=== PATIENT | male | born 1970 | race Caucasian/White ===

== ENCOUNTER → 2025-01-26 | Outpatient (CLI) | payer OTHER | LOC: M RAD 06:27 | PROVIDERS: ATTEND Family Medicine Addiction Medicine | DX: M25.572 Pain in left ankle and joints of left foot (principal) ==

== ENCOUNTER → 2025-04-10 | Outpatient (CLI) | payer OTHER | LOC: M PLAIMG 08:15 | PROVIDERS: ATTEND Orthopaedic Surgery | DX: S86.012A Strain of left Achilles tendon, initial encounter (principal); M72.2 Plantar fascial fibromatosis; M77.32 Calcaneal spur, left foot; X58.XXXA Exposure to other specified factors, initial encounter; Y92.9 Unspecified place or not applicable; Y93.9 Activity, unspecified; Y99.9 Unspecified external cause status ==